=== PATIENT | male | born 1965 | race Caucasian/White ===

== ENCOUNTER 2018-12-06 21:24 | Emergency (ER) | payer OTHER ==
[~2018-12-06] VITALS: Ht 177.8 cm; Wt 72.6 kg
[2018-12-06 21:36] VITALS: Ht 177.8 cm; Wt 72.6 kg
[2018-12-06 22:01] LABS: BASOPHILS 0.1 % (0-2); HEMATOCRIT 38.3 % (42.0-54.0); HEMOGLOBIN 12.4 g/dL (13.5-17.5); IMMATURE GRANULOCYTES 0.1 % (0-5); LYMPHOCYTES 23.5 % (15-50); MCH 28.6 pg (26.0-34.0); MCHC 32.4 g/dL (31.0-37.0); MCV 88.5 fL (80.0-100.0); MEAN PLATELET VOLUME 9.7 fL (7.4-10.4); MONOCYTES 11.8 % (2-11); NEUTROPHILS 61.5 % (40-80); PLATELET COUNT 236 10x3/uL (130-400); RBC 4.33 10x6/uL (4.20-6.10); RDW 14.3 % (11.5-14.5); WBC 7.9 10x3/uL (4.8-10.8)
[2018-12-06 22:02] LABS: APPEARANCE HAZY (CLEAR); BILIRUBIN NEGATIVE (NEGATIVE); COLOR YELLOW (YELLOW); GLUCOSE NEGATIVE (NEGATIVE); KETONE NEGATIVE (NEGATIVE); NITRITE NEGATIVE (NEGATIVE); PROTEIN NEGATIVE (NEGATIVE); SPECIFIC GRAVITY 1.005 (1.005-1.020); UROBILINOGEN NORMAL (NORMAL)
[2018-12-06 22:04] LABS: AMORPHOUS SEDIMENT >1+ /lpf (NONE SEEN); BACTERIA FEW /hpf (NEGATIVE); RED CELLS - URINE RARE /hpf (0-5); WHITE CELLS - URINE OCC /hpf (NEGATIVE)
[2018-12-06 22:12] LABS: CALC OSMOLALITY 272 mosm/kg (275-300); CALCIUM 9.3 mg/dL (8.5-10.1); CARBON DIOXIDE 33.5 mmol/L (21.0-32.0); CHLORIDE - SERUM 103 mmol/L (98-107); CREATININE - SERUM 0.8 mg/dL (0.6-1.3); GLUCOSE 98 mg/dL (74-106); POTASSIUM - SERUM 3.9 mmol/L (3.5-5.1); SODIUM 137 mmol/L (136-145); UREA NITROGEN 11 mg/dL (7-18); eGFR NON AFRICAN AMERICAN > 90 mL/min (90-120)
[2018-12-06 22:19] LABS: ALBUMIN 3.4 g/dL (3.4-5.0); ALKALINE PHOSPHATASE 125 U/L (46-116); ALT (SGPT) 92 U/L (10-68); AMYLASE - SERUM 55 U/L (25-115); BILIRUBIN - TOTAL 0.38 mg/dL (0.2-1.3); LIPASE 80 U/L (73-393); PROTEIN - SERUM 7.4 g/dL (6.4-8.2)
[2018-12-06 22:24] LABS: TROPONIN-I < 0.017 ng/mL (0.000-0.060)
--- NOTE | 2018-12-07 00:23 | NUR ---
15F NG TUBE INSERTED, PLACEMENT CHESCKED VIA ASCULTATION, GETTING READY TO HOOK TO SUCTION PT STATES"I CAN'T DO THIS" AND PULLED NG TUBE OUT, PROVIDER ALFONSO NOTIFIED.
--- NOTE | 2018-12-07 00:30 | NUR ---
PT PULLED OUT IV, CATH TIP INTACT, STATES "I'M LEAVING" AMA FORM SIGNED, ALL RISK INCLUDING POSSIBLE DISCUSSED WITH PT PER MYSELF AND JAREN RN, PROVIDER ALFONSO NOTIFIED
--- NOTE | 2018-12-07 00:45 | NUR ---
PT NEVER CAME TO FLOOR FROM ER. LEFT ER AMA.
[2018-12-07 00:50] VITALS: BP 124/82
== END 2018-12-07 00:45 | disposition left against medical advice (07) ==
LOC: D.ER 21:24 → D.MS 23:36 → D.ER 12-07 00:45 → D.MS 12-07 00:45
PROVIDERS: Family Medicine
DX: K56.609 Unspecified intestinal obstruction, unspecified as to partial versus complete obstruction (principal); R11.2 Nausea with vomiting, unspecified